=== PATIENT | male | born 1980 | race Caucasian/White ===

== ENCOUNTER 2025-04-09 08:42 | Emergency (ER) | payer OTHER, SELFPAY ==
[2025-04-09 08:46] VITALS: BP 134/84
[2025-04-09 09:10] LABS: Hematocrit 43.2 % (39.0-52.0); Hemoglobin 15.1 g/dL (13.0-18.0); Mean Corp Hgb Conc. 35.0 g/dL (33.0-37.0); Mean Corpuscular Volume 89.4 fL (80.0-94.0); Nucleated Red Blood Cells % 0.2 % (-); Platelet Count 230 10^3/uL (130-400); Red Cell Dist. Width 12.6 % (11.5-14.5)
--- NOTE | 2025-04-09 09:23 | ED.GENMED ---
History of Present Illness
General
Chief Complaint: Alcohol Problem
Source: patient
Exam Limitations: none
Time Seen by Provider: 04/09/25 08:49
Nursing documentation reviewed up to this point in time: agreed with
History of Present Illness
History of Present Illness:
44-year-old male past ministry of significant alcohol abuse and substance abuse presenting to the emergency department today with concerns of alcohol abuse. He has been drinking continuously over the past 3 weeks. He claims this was a recent
relapse does have a long history of alcoholism. Has been drinking an unknown quantity of alcohol but drinking until blacking out for 3 consecutive weeks now. Feeling very shaky nauseous and agitated. Last drink was last night roughly 8 to 9 hours
ago.
Past History
Past History
ED Past Medical History: Other (Substance abuse, diverticulitis)
Social History
Tobacco: Smoker
Review of Systems
Review of Systems
Allergies reviewed?: Yes
All Other Systems: ROS reviewed and negative except as documented in HPI and ROS
Phy Exam
Physical Exam
Physical Exam:
GENERAL: Alert , in no apparent distress patient shaking with arms extended
EYE: pupils equal and reactive
NECK: Supple, no significant adenopathy.
ENT: o/p clr, mmm.
CARDIAC: Regular rate and rhythm .
LUNGS: Clear breath sounds bilaterally, no acute respiratory distress, no wheezes/rales/rhonchi
ABDOMEN: Soft, without focal tenderness, no r/g, no cvat
NEUROLOGICAL: Alert and oriented, no focal neuro deficits
SKIN: Warm and dry, skin intact.
MUSCULOSKELETAL: No edema, well perfused.
PSYCH: Seems somewhat agitated
Scores
Withdrawal Assessment of Alcohol
Withdrawal Assessment Completed?: Yes
Nausea and Vomiting: Intermittent nausea with dry heaves
Tactile Disturbances: Moderate itching, pins and needles , burning or numbness
Tremor: Moderate, with patient's arms extended
Auditory Disturbances: Mild harshness or ability
Paroxysmal Sweats: No sweat visible
Visual Disturbances: Mild sensitivity
Anxiety: Moderately anxious, or guarded, so anxiety is inferred
Headache, Fullness in Head: Mild
Agitation: Moderately fidgety and restless
Orientation and clouding of sensorium: Oriented and can do serial additions
Total CIWA Score: 25
Alcohol Withdrawal Medication Recommendation: Equal to MSAS >11. Lorazepam 2-4mg IV NOW and re-assess q1hr
Course
Orders/Labs/Results
Orders:
Orders
04/09/25 09:01
Drug Screen, Urine [Urine Drug Abuse Screen] Urgent
Urinalysis Reflex To Culture Urgent
Lorazepam [Ativan] 1 mg PO NOW STA
Multivitamin [Theragran] 1 tablet PO NOW STA
Ondansetron Injectable [Zofran] 4 mg IV NOW STA
Thiamine Injection 200 mg IV NOW STA
04/09/25 09:02
0.9% Sodium Chloride 1000 ml [Nss] 1,000 ml IV BOLUS
04/09/25 09:05
CBC/With Diff [Complete Blood Count/With Diff] Urgent
04/09/25 09:31
Comprehensive Metabolic Panel Urgent
Abnormal Lab Results
04/09/25 04/09/25
09:05 09:31
MCH 31.3 H pg
(27.0-31.0)
Abs Immat Gran (auto) 0.1 H 10^3/uL
(0-0.05)
Immature Gran % 0.6 H %
(0-0.5)
Lymphocytes % 17.3 L %
(20.5-51.1)
Chloride 108 H mmol/L
(98-107)
04/09/25 09:05
04/09/25 09:31
Vital Signs
Initial and Last Documented VS:
Initial Vital Signs
Temp Pulse Resp BP Pulse Ox
97.5 F 87 16 134/84 98
04/09/25 08:46 04/09/25 08:46 04/09/25 08:46 04/09/25 08:46 04/09/25 08:46
Last Documented Vital Signs
Temp Pulse Resp BP Pulse Ox
98.4 F 70 18 127/84 98
04/09/25 11:08 04/09/25 11:30 04/09/25 11:08 04/09/25 11:08 04/09/25 09:26
MDM/Problems Addressed
MDM/Problems Addressed:
44-year-old male presenting to the emergency department today with concerns of alcohol abuse. Patient seeking treatment at this time. Does claim no history of alcohol withdrawal seizures as well as DTs. Has been drinking continuously over the
past 3 weeks a large amount of alcohol but he is unable to quantify how much. He claims that he drinks until he blacks out. On arrival vital signs are normal occasional heart rate into the low 100s on my examination does have tremor with arms
extended. Patient was given initial dose of oral Ativan with significant improvement in symptoms. Heart rate normal range patient no distress here. He spoke with the [facility] team and he was offered multiple resources. He claims at this point he
would like to leave and he can follow-up as an outpatient does have outpatient resources. At this point withdrawal is not severe he is in no distress he was advised to return if symptoms were progressing.
*Pulse Oximetry
SaO2: 98
Oxygen Mode of Delivery: Room air
Patient hypoxic: no (98)
*Critical Care Note
Total Time (30-74mins, 75-104mins- exclusive of procedures): Not Applicable
ED Attending Note
-
Portions of this chart may have been created with voice recognition software.� Occasional wrong word or��sound alike� substitutions may have occurred due to the inherent limitations of voice recognition software.
Discharge Plan
Departure
Patient Disposition: Home (Routine Discharge)
Date of Disposition: 04/09/25
Time of Disposition: 12:43
Patient with high blood pressure during this ER visit?: No
Condition: Good
Covid-19: Not Applicable
Discharge Problem:
Alcohol withdrawal
Instructions: Alcohol Use Disorder (DC)
Prescriptions:
New
lorazepam [Ativan] 1 mg tablet
1 mg PO DAILY PRN (Reason: alcohol withdrawal) Qty: 7 0RF
Rx Instructions:
1 tab Q8 hours day 1, 1 tab Q12 hours day 2, 1 tab day 3 and 1/2 tab on day 4 and 5.
No Action
Suboxone 2 mg-0.5 mg Tablet:
6 mg PO BID
ketorolac 10 MG tablet
10 mg PO Q6HPRN PRN (Reason: pain) Qty: 20 0RF
clindamycin HCl 300 MG capsule
300 mg PO TID Qty: 21 0RF
Referrals:
NONE,* [Family Provider, Internal Medicine]
Activity Restrictions/Additional Instructions:
You came to the emergency department today with concerns of alcohol withdrawal. Please follow-up closely as an outpatient take the Ativan taper as prescribed. Return for any worsening, new or concerning symptoms.
Interventions
Interventions:
*Risk Screen - Suicide Last Done: 04/09/25 08:46
*General Assessment Last Done: 04/09/25 09:09
*Neglect/Abuse Screening Last Done: 04/09/25 08:46
*ED- Fall Risk Assessment Last Done: 04/09/25 08:51
*ED COVID-19 Vaccine History Last Done: 04/09/25 08:51
ED- Neurological Assessment Last Done: 04/09/25 08:51
ED-Psychological Assessment Last Done: 04/09/25 09:09
Discharge Date and Time
Print Language: SINHALA
[2025-04-09] MEDS: NSS 1000 IV (09:24)
[2025-04-09] MEDS: THERAGRAN 1 TABLET PO (09:24)
[2025-04-09] MEDS: ATIVAN 1 MG PO (09:24)
[2025-04-09] MEDS: ZOFRAN 4 MG IV (09:25)
[2025-04-09] MEDS: THIAMINE INJECTION 200 MG IV (09:25)
[2025-04-09 09:53] LABS: ALT (SGPT) 29 U/L (0-50); AST (SGOT) 34 U/L (17-59); Albumin 4.9 g/dl (3.5-5.0); Alkaline Phosphatase 75 U/L (38-126); Blood Urea Nitrogen 14 mg/dl (9-20); Calcium 9.7 mg/dl (8.4-10.2); Carbon Dioxide 25 mmol/L (22-30); Chloride 108 mmol/L (98-107); Glucose 89 mg/dl (70-99); Potassium 4.7 mmol/L (3.5-5.1); Sodium 141 mmol/L (135-145); Total Protein 7.6 g/dl (6.3-8.2); eGFR > 60.00
[2025-04-09 10:44] VITALS: BP 128/79
[2025-04-09 11:00] VITALS: BP 133/83
[2025-04-09 11:06] VITALS: BP 127/84
[2025-04-09 11:08] VITALS: BP 127/84
== END 2025-04-09 12:58 | disposition home or self-care (01) ==
LOC: EMR 08:42
PROVIDERS: Physician Assistant; EMERGENCY PHYSICIAN Emergency Medicine
DX: F10.239 Alcohol dependence with withdrawal, unspecified (principal); R11.0 Nausea; R45.1 Restlessness and agitation; R25.1 Tremor, unspecified; R20.2 Paresthesia of skin; F19.10 Other psychoactive substance abuse, uncomplicated; K57.92 Diverticulitis of intestine, part unspecified, without perforation or abscess without bleeding; F41.9 Anxiety disorder, unspecified; F17.200 Nicotine dependence, unspecified, uncomplicated; Z98.0 Intestinal bypass and anastomosis status; Z88.0 Allergy status to penicillin
CPT/HCPCS: 99284; 96374; 96375; 96361; 80053; 85025